=== PATIENT | male | born 1990 | race Caucasian/White ===

== ENCOUNTER 2021-12-17 11:04 | Emergency (ER) | payer OTHER, SELFPAY ==
[2021-12-17 11:12] VITALS: BP 107/72; PULSE 87; RESP 18; TEMP 36.1; O2SAT 100; BMI 22.5
[2021-12-17 11:30] VITALS: BP 108/67; PULSE 87; O2SAT 97
--- NOTE | 2021-12-17 11:49 | ED_ITS ---
HPI - Chest Pain General Chief Complaint: Chest Pain Stated Complaint: Chest Pain Time Seen by Provider: 12/17/21 11:17 History of Present Illness HPI narrative: This 31-year-old male comes in reporting some chest discomfort that began last evening after taking a deep breath. He states that he felt diffuse chest discomfort that is been rather constant since then. He noted that his heart rate increased and was thinking that he may have another occurrence of atrial fibrillation. This happened to him about a year ago and his heart return to normal sinus rhythm spontaneously. He took metoprolol for about a month and has discontinued this medicine. He also has a history of epilepsy and has not had a seizure for about a year. He is on good regimen of medications now in this regard but indicates that when he did have a seizure in the past it was preceded with increased heart rate. This morning when getting up he was lightheaded and his smart watch showed a heart rate of 137 beats per minute. He states that it was an irregular rhythm also. At the time of his arrival here he does not feel any symptoms of tachycardia or palpitations. He does report some generalized malaise. He states that he did take a COVID test at home 3 days ago with negative results. Related Data Home Medications Medication Instructions Recorded Confirmed lamotrigine 200 mg tablet 300 mg PO Q12H 12/17/21 12/17/21 levetiracetam 1,000 mg tablet 2,000 mg PO Q12H 12/17/21 12/17/21 topiramate 100 mg tablet 100 mg PO Q12H 12/17/21 12/17/21 Previous Rx's Medication Instructions Recorded metoprolol tartrate 25 mg tablet 25 mg PO DAILY PRN #30 tabs 12/17/21 Allergies Allergy/AdvReac Type Severity Reaction Status Date / Time No Known Drug Allergies Allergy Verified 12/17/21 11:19 Review of Systems Status of ROS Reports: 10 or more systems reviewed and unremarkable except as noted in History and below Narrative Constitutional: No fevers, no weight gain or loss. Eyes: No discharge. No vision changes. HENT: No congestion, no sore throat, no ear pain. Cardiovascular: Chest discomfort and palpitations as described above. He did have some associated lightheadedness when his heart rate was increased. Respiratory: No cough or wheezes. He does not have shortness of breath but states that he did not want to take a deep breath because of the above-stated symptoms. Gastrointestinal: No abdominal pain, no vomiting, no diarrhea. Genitourinary: No dysuria, no hematuria. Musculoskeletal: Normal range of motion. Skin: No rashes, no pruritis. Neurological: No weakness, sensory change, speech change. Endo/Heme/Allergies: No bruising or bleeding. No polydipsia. Pysch: no suicidality, no anxiety, no insomnia. All other systems reviewed and are negative. PFSH PFS Social History Smoking Status: Former smoker Do you use any of these nicotine containing products: Vaping Products Second hand tobacco smoke exposure: No How often do you have a drink containing alcohol: 4 or more times a week How many standard drinks containing alcohol do you have on a typical day: 3 or 4 How often do you have six or more drinks on one occasion: Never AUDIT-C Alcohol total score: 5 Non-prescribed substance use: other Non-prescribed substance use details: CBD Vape Exam Narrative Exam Narrative: Constitutional: Well-developed, well-nourished, no acute distress. HEENT: Normocephalic, atraumatic. Neck: Normal range of motion. Nontender. Supple. Heart: Regular. No murmurs. Normal rate. Intact distal pulses. Lungs: Clear to auscultation. No chest discomfort. No wheezes, rhonchi, or rales. Abdomen: Normal bowel sounds. Nontender. No rebound tenderness. Genitalia: Deferred. Back: No midline tenderness. Normal range of motion. Extremities: Normal range of motion. No injury. Skin: Intact. No rash. Warm. No erythema or pallor. Neurologic: No altered sensation. No weakness. Alert and oriented. Psychiatric: No suicidality. No anxiety or depression. No insomnia. Nursing notes and vitals signs are reviewed. Const Vital Signs, click to edit/add: Vital Signs - 24 hr 12/17/21 11:12 Temperature 96.9 F L Pulse Rate [Left Pulse Oximeter] 87 Respiratory Rate 18 Blood Pressure [Right Upper Arm] 107/72 Pulse Oximetry 100 Oxygen Delivery Method Room Air Course Vital Signs Vital signs: Initial Vital Signs Temperature 96.9 F L 12/17/21 11:12 Temperature Source Temporal Artery Scan 12/17/21 11:12 Pulse Rate 87 12/17/21 11:12 Respiratory Rate 18 12/17/21 11:12 Blood Pressure 107/72 12/17/21 11:12 Blood Pressure Mean 83 12/17/21 11:12 Blood Pressure Position Supine 12/17/21 11:12 Pulse Oximetry 100 12/17/21 11:12 Oxygen Delivery Method 12/17/21 11:12 Vital Signs Temperature 96.9 F L 12/17/21 11:12 Pulse Rate 87 12/17/21 11:12 Respiratory Rate 18 12/17/21 11:12 Blood Pressure 107/72 12/17/21 11:12 Pulse Oximetry 100 12/17/21 11:12 Oxygen Delivery Method 12/17/21 11:12 Temperature 96.9 F L 12/17/21 11:12 Pulse Rate 87 12/17/21 11:12 Respiratory Rate 18 12/17/21 11:12 Blood Pressure 107/72 12/17/21 11:12 Pulse Oximetry 100 12/17/21 11:12 Oxygen Delivery Method 12/17/21 11:12 MDM - Chest Pain MDM Narrative Medical decision making narrative: This 31-year-old comes in reporting some generalized malaise and an episode of chest discomfort after taking a deep breath last evening. He noted that his heart rate was increased this morning and was also irregular. He had atrial fibrillation a year ago and feels like the symptoms were same this time. Upon arrival here he is in normal sinus rhythm and his symptoms have resolved except for feeling of generalized malaise and discomfort. His EKG shows normal sinus rhythm. His vital signs are also in normal range as is findings on his exam. Lab results are reassuring with negative troponin and D-dimer along with normal electrolytes and hemoglobin and white count. He was tested for COVID and this does return positive. It seems that this patient did have an episode of paroxysmal atrial fibrillation and it was probably triggered by the COVID virus. This is his 2nd episode apparently so I did prescribe some metoprolol which she had taken in the past without any adverse effects. As for the COVID infection I did advise him to return if he become short of breath. Otherwise he can use [id number] medicines as needed and directed. Lab Data Labs: Lab Results 12/17/21 12/17/21 12/17/21 Range/Units 11:48 12:06 12:06 WBC 5.28 (4.50-11.00) K/uL RBC 5.39 (4.30-5.90) m/uL Hgb 16.4 (13.5-17.5) gm/dL Hct 46.1 (37.0-53.0) % MCV 86 (80-100) fL MCH 30 (26-34) pg MCHC 36 (32-36) gm/dL RDW Coeff of Angie 11.6 (11.5-15.5) % Plt Count 234 (140-440) K/uL Neut % (Auto) 64.1 (42.0-72.0) % Lymph % (Auto) 24.4 (20-44) % [place] % (Auto) 10.0 (0.0-11.0) % Eos % (Auto) 0.9 (0.0-7.0) % Baso % (Auto) 0.4 (0.0-3.0) % Neut # (Auto) 3.38 (1.7-7.0) K/uL Lymph # (Auto) 1.29 (0.90-2.90) K/uL [place] # (Auto) 0.50 (0.00-0.90) K/UL Eos # (Auto) 0.05 (0.00-0.50) K/uL Baso # (Auto) 0.02 (0.00-0.30) K/uL Abs Immat Gran (auto) 0.01 (0.00-0.30) K/uL D-Dimer Quant (PE/DVT) < 0.27 (0.00-0.50) ug/ml Sodium (135-149) mmol/L Potassium (3.6-5.1) mmol/L Chloride (96-114) mmol/L Carbon Dioxide (20-32) mmol/L BUN (5-24) mg/dL Creatinine (0.5-1.5) mg/dL Estimated Creat Clear Estimated GFR ml/min Glucose (60-115) mg/dL Calcium (8.4-10.6) mg/dL Magnesium (1.5-2.6) mg/dL SARS-CoV-2 (PCR) POSITIVE SARS-CoV-2 A (Negative) Influenza Type A (PCR) Negative PCR FLU A (Negative) Influenza Type B (PCR) Negative PCR FLU B (Negative) POC Troponin I (0.01-0.04) ng/ml 12/17/21 12/17/21 Range/Units 12:06 12:06 WBC (4.50-11.00) K/uL RBC (4.30-5.90) m/uL Hgb (13.5-17.5) gm/dL Hct (37.0-53.0) % MCV (80-100) fL MCH (26-34) pg MCHC (32-36) gm/dL RDW Coeff of Angie (11.5-15.5) % Plt Count (140-440) K/uL Neut % (Auto) (42.0-72.0) % Lymph % (Auto) (20-44) % [place] % (Auto) (0.0-11.0) % Eos % (Auto) (0.0-7.0) % Baso % (Auto) (0.0-3.0) % Neut # (Auto) (1.7-7.0) K/uL Lymph # (Auto) (0.90-2.90) K/uL [place] # (Auto) (0.00-0.90) K/UL Eos # (Auto) (0.00-0.50) K/uL Baso # (Auto) (0.00-0.30) K/uL Abs Immat Gran (auto) (0.00-0.30) K/uL D-Dimer Quant (PE/DVT) (0.00-0.50) ug/ml Sodium 140 (135-149) mmol/L Potassium 5.0 (3.6-5.1) mmol/L Chloride 107 (96-114) mmol/L Carbon Dioxide 27 (20-32) mmol/L BUN 10 (5-24) mg/dL Creatinine 1.2 (0.5-1.5) mg/dL Estimated Creat Clear 103.92 Estimated GFR 82 ml/min Glucose 68 (60-115) mg/dL Calcium 9.0 (8.4-10.6) mg/dL Magnesium 2.1 (1.5-2.6) mg/dL SARS-CoV-2 (PCR) (Negative) Influenza Type A (PCR) (Negative) Influenza Type B (PCR) (Negative) POC Troponin I 0.01 (0.01-0.04) ng/ml ECG Data Attestation: I personally reviewed and interpreted this ECG as follows: Interpretation: Normal sinus rhythm. Rate is 83 beats per minute. There are no ST or T-wave abnormalities. Discharge Plan Discharge Clinical Impression: COVID-19, Paroxysmal atrial fibrillation Condition: Stable Instructions: A-fib (Atrial Fibrillation) (ED) Additional Instructions: Use [id number] medicines as needed and directed. Follow up with MD or return if worsening symptoms occur. Prescriptions: New metoprolol tartrate 25 mg tablet 25 mg PO DAILY PRNQty: 30 1RF No Action lamotrigine 200 mg tablet 300 mg PO Q12H Label Comments: TAKE 1 AND ONE-HALF TABLETS BY MOUTH TWICE DAILY levetiracetam 1,000 mg tablet 2,000 mg PO Q12H Label Comments: TAKE 2 TABLETS BY MOUTH TWICE DAILY topiramate 100 mg tablet 100 mg PO Q12H Label Comments: TAKE 1 TABLET BY MOUTH TWICE DAILY DIRECTED Follow Up/Referrals: Yo Neumann MD [Primary Care Provider] - Stand Alone Forms: [facility] Info Instructions
[2021-12-17 12:00] VITALS: BP 102/68; PULSE 77; O2SAT 97
[2021-12-17 12:14] LABS: Basophils Absolute Auto 0.02 K/uL (0.00-0.30); Basophils Percent Auto 0.4 % (0.0-3.0); Eosinophils Absolute Auto 0.05 K/uL (0.00-0.50); Eosinophils Percent Auto 0.9 % (0.0-7.0); Hematocrit 46.1 % (37.0-53.0); Hemoglobin* 16.4 gm/dL (13.5-17.5); Immature Granulocytes Abs Auto 0.01 K/uL (0.00-0.30); Lymphocytes Absolute Auto 1.29 K/uL (0.90-2.90); Lymphocytes Percent Auto 24.4 % (20-44); Mean Corpuscular HGB Conc 36 gm/dL (32-36); Mean Corpuscular Hemoglobin 30 pg (26-34); Mean Corpuscular Volume 86 fL (80-100); Neutrophils Absolute Auto 3.38 K/uL (1.7-7.0); Neutrophils Percent Auto 64.1 % (42.0-72.0); Platelet Count* 234 K/uL (140-440); RDW Coefficient of Variation % 11.6 % (11.5-15.5); Red Blood Count 5.39 m/uL (4.30-5.90); White Blood Count* 5.28 K/uL (4.50-11.00)
[2021-12-17 12:21] LABS: Troponin, Point-of-Care* 0.01 ng/ml (0.01-0.04)
[2021-12-17 12:27] LABS: Slide Review Reflex No
[2021-12-17 12:29] LABS: Chloride* 107 mmol/L (96-114); Sodium* 140 mmol/L (135-149)
[2021-12-17 12:30] VITALS: BP 110/72; PULSE 74; O2SAT 96
[2021-12-17 12:32] LABS: Creatinine* 1.2 mg/dL (0.5-1.5); Est. Creatinine Clearance* 103.92; Estimated Glomerular Filt Rate 82 ml/min
[2021-12-17 12:33] LABS: Blood Urea Nitrogen* 10 mg/dL (5-24); Carbon Dioxide* 27 mmol/L (20-32); Glucose* 68 mg/dL (60-115); Magnesium* 2.1 mg/dL (1.5-2.6)
[2021-12-17 12:41] LABS: D Dimer Quantitative* < 0.27 ug/ml (0.00-0.50)
[2021-12-17 12:49] LABS: PCR FLU A Negative PCR FLU A (Negative); PCR FLU B Negative PCR FLU B (Negative)
[2021-12-17 12:55] LABS: SARS PCR* POSITIVE SARS-CoV-2 (Negative)
[2021-12-17 13:00] VITALS: BP 110/80; PULSE 80; RESP 16; O2SAT 95
== END 2021-12-17 13:25 | disposition home or self-care (01) ==
PROVIDERS: Emergency Provider Emergency Medicine Emergency Medical Services; PCP Family Medicine
DX: U07.1 COVID-19 (principal); I48.91 Unspecified atrial fibrillation
CPT/HCPCS: 36415; 80048; 83735; 84484; 85025; 85379; 87631; 93005; 99285

== ENCOUNTER 2022-06-12 09:46 | Outpatient (REF) | payer OTHER, SELFPAY ==
[2022-06-14 02:31] LABS: Lamotrigine 13.7 ug/mL (3.0-15.0)
[2022-06-14 02:32] LABS: Topiramate 6.6 ug/mL (5.0-20.0)
[2022-06-14 02:33] LABS: Keppra (Levetiracetam) 71 ug/mL (10-40)
== END 2022-06-12 09:47 | disposition home or self-care (01) ==
LOC: NPINS 09:46
PROVIDERS: PCP Family Medicine; Visit Provider Psychiatry & Neurology Neurology
DX: R25.1 Tremor, unspecified (principal); G40.409 Other generalized epilepsy and epileptic syndromes, not intractable, without status epilepticus
CPT/HCPCS: 80175; 80177; 80201

== ENCOUNTER 2022-10-11 13:56 | Emergency (ER) | payer OTHER, SELFPAY ==
[2022-10-11 14:22] VITALS: BP 112/67; PULSE 96; RESP 16; TEMP 36.3; O2SAT 96; BMI 23.7
[2022-10-11 14:31] LABS: Appearance Urine Cloudy (Clear); Bilirubin Urine Negative (Negative); Blood Urine 1+ (Negative); Color Urine Yellow (Yellow); Glucose Urine Negative (Negative); Ketones Urine Negative (Negative); Leukocyte Esterase Urine Negative (Negative); Nitrite Urine Negative (Negative); Protein Urine Trace (Negative); Urobilinogen Urine 0.2 (0.2-1.0)
[2022-10-11 14:40] LABS: Bacteria Urine Few; WBC Urine 0-2 (0-5)
--- NOTE | 2022-10-11 15:07 | ED.GENADULT ---
HPI - General Adult General Time Seen by Provider: 15:07 Date Seen: 10/11/22 Chief complaint: Flank Pain Stated complaint: Kidney Stones Time Seen by Provider: 10/11/22 15:07 Source: patient and RN notes reviewed Mode of arrival: ambulatory Limitations: no limitations History of Present Illness HPI narrative: 32-year-old male with history of appendicitis status post appendectomy, cholecystitis status post cholecystectomy who comes to the emergency room with right flank pain. Patient noted the onset of right flank pain yesterday but had had that proceeded by 2 days of low back pain without injury. Patient notes the pain is coming in waves. Patient initially tried Gas-X and antacids but it did not help. States he did not sleep at all overnight until this morning at 11 when finally the pain improved somewhat. He states his urine is yellow and very cloudy. He did have vomiting last night. There has been no changes in his stools. He has no history of kidney stones. Urine has already been collected. He notes that movement does increase his discomfort. He notes that it is hard to get into a comfortable position but again after 1100 hours this morning it got somewhat improved. He has had minimal urination. Patient notes no radiation of the pain into his testicles that he can recall. Related Data Home Medications Medication Instructions Recorded Confirmed lamotrigine 200 mg tablet 300 mg PO Q12H 12/17/21 05/01/22 levetiracetam 1,000 mg tablet 2,000 mg PO Q12H 12/17/21 05/01/22 topiramate 100 mg tablet 100 mg PO Q12H 12/17/21 05/01/22 Previous Rx's Medication Instructions Recorded metoprolol tartrate 25 mg tablet 25 mg PO DAILY PRN #30 tabs 12/17/21 Allergies Allergy/AdvReac Type Severity Reaction Status Date / Time No Known Drug Allergies Allergy Verified 05/01/22 07:18 Review of Systems Status of ROS: Reports: 10 or more systems reviewed and unremarkable except as noted in History and below Const: Denies: fever or chills ENMT: Denies: neck pain or difficulty swallowing Cardio: Denies: chest pain or shortness of breath with exertion Resp: Denies: shortness of breath or cough GI: Reports: nausea and vomiting; Denies: abdominal pain, diarrhea or difficulty swallowing : Denies: painful urination or blood in urine Musculo: Reports: back pain; Denies: neck pain PFSH PFS Social History Smoking Status: Never smoker Do you use any of these nicotine containing products: Vaping Products Second hand tobacco smoke exposure: No How often do you have a drink containing alcohol: 4 or more times a week How many standard drinks containing alcohol do you have on a typical day: 3 or 4 How often do you have six or more drinks on one occasion: Never AUDIT-C Alcohol total score: 5 Non-prescribed substance use: other Non-prescribed substance use details: CBD Vape Exam Narrative: Exam Narrative: Alert and oriented. Nontoxic in appearance. External ears eyes nose clear. Heart with regular rate and rhythm and lungs are clear to auscultation. No CVA tenderness with percussion. No palpable tenderness on the lower lumbar spine. Abdomen is soft nontender. Moving all extremities. Const: Vital Signs, click to edit/add: Vital Signs - 24 hr 10/11/22 14:22 Temperature 97.3 F L Pulse Rate [Right Pulse Oximeter] 96 Respiratory Rate 16 Blood Pressure [Ri ght Upper Arm] 112/67 Pulse Oximetry 96 Oxygen Delivery Me thod Room Air Documenting provider has reviewed patient's vital signs: yes Course Course Hospital Course: Differential diagnosis includes ureteral colic, pyelonephritis, UTI, intestinal colic, musculoskeletal pain. Will place IV give 1 L of normal saline and pursue noncontrast CT, urinalysis, CBC, comprehensive panel and CRP. Vital Signs Vital signs: Initial Vital Signs Temperature 97.3 F L 10/11/22 14:22 Temperature Source Temporal Artery Scan 10/11/22 14:22 Pulse Rate 96 10/11/22 14:22 Pulse Rhythm Regular 10/11/22 14:22 Respiratory Rate 16 10/11/22 14:22 Blood Pressure 112/67 10/11/22 14:22 Blood Pressure Mean 82 10/11/22 14:22 Blood Pressure Position Sitting 10/11/22 14:22 Pulse Oximetry 96 10/11/22 14:22 Oxygen Delivery Method Room Air 10/11/22 14:22 Vital Signs Temperature 97.3 F L 10/11/22 14:22 Pulse Rate 96 10/11/22 14:22 Respiratory Rate 16 06/29/23 14:22 Blood Pressure 112/67 10/11/22 14:22 Pulse Oximetry 96 10/11/22 14:22 Oxygen Delivery Method Room Air 10/11/22 14:22 Temperature 97.3 F L 10/11/22 14:22 Pulse Rate 96 10/11/22 14:22 Respiratory Rate 16 10/11/22 14:22 Blood Pressure 112/67 10/11/22 14:22 Pulse Oximetry 96 10/11/22 14:22 Oxygen Delivery Method Room Air 10/11/22 14:22 Medical Decision Making MDM Narrative Medical decision making narrative: 1. Flank pain-highly suspect recent ureteral colic with nephrolithiasis present in the kidneys. No evidence of obstructing stone at this time but patient also had hematuria. He is feeling much better at this time. Recommend pushing fluids and monitoring. 2. Disposition-home at this time. Recommend returning for return of symptoms. Urine will be sent for a culture. Medical Records Medical records reviewed: Yes I reviewed the patient's medical records Lab Data Lab results reviewed: Yes I reviewed the patient's lab results Labs: Lab Results 10/11/22 10/11/22 Range/Units 14:20 15:55 WBC 5.66 (4.50-11.00) K/uL RBC 4.96 (4.30-5.90) m/uL Hgb 15.2 (13.5-17.5) gm/dL Hct 43.4 (37.0-53.0) % MCV 88 (80-100) fL MCH 31 (26-34) pg MCHC 35 (32-36) gm/dL RDW Coeff of Angie 12.2 (11.5-15.5) % Plt Count 250 (140-440) K/uL Neut % (Auto) 65.2 (42.0-72.0) % Lymph % (Auto) 24.7 (20-44) % [place] % (Auto) 9.2 (0.0-11.0) % Eos % (Auto) 0.5 (0.0-7.0) % Baso % (Auto) 0.4 (0.0-3.0) % Neut # (Auto) 3.70 (1.7-7.0) K/uL Lymph # (Auto) 1.40 (0.90-2.90) K/uL [place] # (Auto) 0.50 (0.00-0.90) K/UL Eos # (Auto) 0.00 (0.00-0.50) K/uL Baso # (Auto) 0.00 (0.00-0.30) K/uL Sodium 141 (135-149) mmol/L Potassium 3.8 (3.6-5.1) mmol/L Chloride 105 (96-114) mmol/L Carbon Dioxide 26 (20-32) mmol/L BUN 10 (5-24) mg/dL Creatinine 1.0 (0.5-1.5) mg/dL Estimated Creat Clear 124.40 Estimated GFR 101 ml/min Glucose 94 (60-115) mg/dL Calcium 9.6 (8.4-10.6) mg/dL Total Bilirubin 0.6 (0.1-1.5) mg/dL AST 25 (12-35) U/L ALT 27 (4-50) U/L Alkaline Phosphatase 60 (40-150) U/L C-Reactive Protein 0.5 (0.5-1.0) mg/dL Total Protein 7.2 (6.0-8.3) g/dL Albumin 4.8 (3.3-5.0) g/dL Lipase 99 (23-300) U/L Urine Color Yellow (Yellow) Urine Appearance Cloudy A (Clear) Urine pH 7.0 (5.0-8.5) Ur Specific [place] 1.020 (1.000-1.030) Urine Protein Trace A (Negative) Urine Glucose (UA) Negative (Negative) Urine Ketones Negative (Negative) Urine Blood 1+ A (Negative) Urine Nitrite Negative (Negative) Urine Bilirubin Negative (Negative) Urine Urobilinogen 0.2 (0.2-1.0) Ur Leukocyte Esterase Negative (Negative) Urine RBC 10-25 A (0-2) Urine WBC 0-2 (0-5) Ur Squamous Epith Cells None (None-Few) Urine Bacteria Few A (None) Imaging Data CT scan - abdomen: Attestation: I have reviewed the pertinent imaging results. Radiologist's impression: Lower chest: Unremarkable. Liver: Unremarkable. Normal in size and attenuation. No masses. Gallbladder and bile ducts: Status post cholecystectomy. Spleen: Unremarkable. Normal in size without mass. Pancreas: Unremarkable. No mass or inflammation. Adrenal glands: Unremarkable. No nodules. Kidneys: Nephrolithiasis without evidence of ureteral stone or hydronephrosis. Vasculature: Unremarkable. GI tract: The stomach is unremarkable. No dilated loops of large or small intestine. Surgical clips at the cecal tip suggesting prior appendectomy. Pelvis: Unremarkable. Bones: Bilateral spondylolysis L5. IMPRESSION: 1. Nephrolithiasis without evidence of hydronephrosis or ureteral stone. 2. No dilated bowel or localized inflammation. 3. Bilateral spondylolysis at L5. Discharge Plan Discharge Clinical Impression: Hematuria, microscopic, History of nephrolithiasis Patient Disposition: Home w/ Parent or Adult Condition: Improved Additional Instructions: Return to the emergency room for worsening symptoms. Push fluids. Prescriptions: No Action lamotrigine 200 mg tablet 300 mg PO Q12H Patient Comments: TAKE 1 AND ONE-HALF TABLETS BY MOUTH TWICE DAILY levetiracetam 1,000 mg tablet 2,000 mg PO Q12H Patient Comments: TAKE 2 TABLETS BY MOUTH TWICE DAILY topiramate 100 mg tablet 100 mg PO Q12H Patient Comments: TAKE 1 TABLET BY MOUTH TWICE DAILY DIRECTED metoprolol tartrate 25 mg tablet 25 mg PO DAILY PRNQty: 30 1RF Follow Up/Referrals: Yo Neumann MD [Primary Care Provider] - Stand Alone Forms: [employer] Info Instructions
--- NOTE | 2022-10-11 15:14 | CRLHL7_ITS ---
For Patients: As a result of the Century Cures Act, medical imaging exams and procedure reports are released immediately into your electronic medical record. You may view this report before your referring provider. If you have questions, please contact your health care provider. INDICATION: Right flank pain TECHNIQUE: Axial images were obtained from the diaphragm to the pubic symphysis. Reformats were obtained in the coronal and sagittal plane. IV Contrast: None Oral Contrast: None COMPARISON: None. FINDINGS: Lower chest: Unremarkable. Liver: Unremarkable. Normal in size and attenuation. No masses. Gallbladder and bile ducts: Status post cholecystectomy. Spleen: Unremarkable. Normal in size without mass. Pancreas: Unremarkable. No mass or inflammation. Adrenal glands: Unremarkable. No nodules. Kidneys: Nephrolithiasis without evidence of ureteral stone or hydronephrosis. Vasculature: Unremarkable. GI tract: The stomach is unremarkable. No dilated loops of large or small intestine. Surgical clips at the cecal tip suggesting prior appendectomy. Pelvis: Unremarkable. Bones: Bilateral spondylolysis L5. IMPRESSION: 1. Nephrolithiasis without evidence of hydronephrosis or ureteral stone. 2. No dilated bowel or localized inflammation. 3. Bilateral spondylolysis at L5. Please note that all CT scans at this facility use dose modulation, iterative reconstruction, and/or weight-based dosing when appropriate to reduce radiation dose to as low as reasonably achievable. Dictated by Celso Dye MD @ 10/11/2022 4:15:07 PM (Electronically Signed)
[2022-10-11] MEDS: 0.9 % SODIUM CHLORIDE 1000 ml 1,000 ML IV (16:00)
[2022-10-11 16:09] LABS: Hematocrit 43.4 % (37.0-53.0); Hemoglobin* 15.2 gm/dL (13.5-17.5); Mean Corpuscular Volume 88 fL (80-100); Red Blood Count 4.96 m/uL (4.30-5.90); White Blood Count* 5.66 K/uL (4.50-11.00)
[2022-10-11 16:10] LABS: Basophils Percent Auto 0.4 % (0.0-3.0); Eosinophils Percent Auto 0.5 % (0.0-7.0); Lymphocytes Percent Auto 24.7 % (20-44); Mean Corpuscular HGB Conc 35 gm/dL (32-36); Mean Corpuscular Hemoglobin 31 pg (26-34); Monocytes Percent Auto 9.2 % (0.0-11.0); Neutrophils Percent Auto 65.2 % (42.0-72.0); Platelet Count* 250 K/uL (140-440); RDW Coefficient of Variation % 12.2 % (11.5-15.5); Slide Review Reflex No
[2022-10-11 16:29] LABS: Blood Urea Nitrogen* 10 mg/dL (5-24); Calcium* 9.6 mg/dL (8.4-10.6); Carbon Dioxide* 26 mmol/L (20-32); Chloride* 105 mmol/L (96-114); Estimated Glomerular Filt Rate 101 ml/min; Potassium* 3.8 mmol/L (3.6-5.1); Sodium* 141 mmol/L (135-149)
[2022-10-11 16:30] LABS: Alanine Aminotransferase* 27 U/L (4-50); Albumin* 4.8 g/dL (3.3-5.0); Alkaline Phosphatase* 60 U/L (40-150); Aspartate Amino Transferase* 25 U/L (12-35); Bilirubin Total* 0.6 mg/dL (0.1-1.5); C Reactive Protein* 0.5 mg/dL (0.5-1.0); Glucose* 94 mg/dL (60-115); Lipase* 99 U/L (23-300); Total Protein* 7.2 g/dL (6.0-8.3)
== END 2022-10-11 17:32 | disposition home or self-care (01) ==
PROVIDERS: Emergency Provider Family Medicine; PCP Family Medicine
DX: R31.9 Hematuria, unspecified (principal)
CPT/HCPCS: 36415; 74176; 80053; 81001; 83690; 85025; 86140; 87086; 99283; 99284; J7030